=== PATIENT | female | born 1960 | race Two or more races ===

== ENCOUNTER 2021-03-06 21:35 | Emergency (ER) | payer OTHER ==
[~2021-03-06] VITALS: Ht 160 cm; Wt 96.6 kg
[2021-03-06] MEDS ORDERED: VALSARTAN160 MG (22:11)
[2021-03-06] MEDS ORDERED: TENORMIN50 M1 (22:11)
[2021-03-06] MEDS ORDERED: AMBIEN5 MG (22:12)
[2021-03-07] MEDS ORDERED: MEDROLPACK PO (13:56)
[2021-03-07] MEDS ORDERED: ZITHROMAX500 MG PO (13:56)
[2021-03-07] MEDS ORDERED: IVERMECTIN3 MG PO (13:56)
[2021-03-07] MEDS ORDERED: PROAIR RESPICL90 MCG IH (13:56)
[2021-03-07] MEDS ORDERED: TUSNEL LIQUID178 ML PO (13:56)
== END 2021-03-07 14:18 | disposition home or self-care (01) ==
LOC: ER 21:35
DX: U07.1 COVID-19 (principal); J06.9 Acute upper respiratory infection, unspecified; R50.9 Fever, unspecified; K57.30 Diverticulosis of large intestine without perforation or abscess without bleeding; J12.82 Pneumonia due to coronavirus disease 2019; I10 Essential (primary) hypertension

== ENCOUNTER 2021-03-09 13:00 | Outpatient (CLI) | payer OTHER ==
[~2021-03-09 13:00] MED LIST: AMBIEN5 MG; IVERMECTIN3 MG PO; MEDROLPACK PO; PROAIR RESPICL90 MCG IH; TENORMIN50 M1; TUSNEL LIQUID178 ML PO; VALSARTAN160 MG; ZITHROMAX500 MG PO
== END 2021-03-09 14:45 | disposition home or self-care (01) ==
LOC: ASH CLINIC 13:00
PROVIDERS: ATTEND General Practice
DX: Z23 Encounter for immunization (principal); U07.1 COVID-19

== ENCOUNTER 2021-03-12 23:14 | Inpatient (IN) | payer OTHER ==
[~2021-03-12] VITALS: Ht 160 cm; Wt 90.7 kg
[2021-03-12] MEDS ORDERED: ATENOLOL25 GM (23:46)
[2021-03-12] MEDS ORDERED: NORVASC5 MG (23:46)
== END 2021-03-20 14:40 | disposition home or self-care (01) | DRG 177 ==
LOC: ER 23:14 → MEDJ 03-13 09:40
PROVIDERS: ADMIT Internal Medicine; ATTEND Internal Medicine
PROC: BW25ZZZ Computerized Tomography (CT Scan) of Chest, Abdomen and Pelvis (ICD-10-PCS; principal; 2021-03-13)
PROC: 3E0F7GC Introduction of Other Therapeutic Substance into Respiratory Tract, Via Natural or Artificial Opening (ICD-10-PCS; 2021-03-13)
PROC: 3E0F7SF Introduction of Other Gas into Respiratory Tract, Via Natural or Artificial Opening (ICD-10-PCS; 2021-03-13)
PROC: 4A12X4Z Monitoring of Cardiac Electrical Activity, External Approach (ICD-10-PCS; 2021-03-13)
PROC: 8E0ZXY6 Isolation (ICD-10-PCS; 2021-03-13)
PROC: 4A033R1 Measurement of Arterial Saturation, Peripheral, Percutaneous Approach (ICD-10-PCS; 2021-03-14)
PROC: XW033E5 Introduction of Remdesivir Anti-infective into Peripheral Vein, Percutaneous Approach, New Technology Group 5 (ICD-10-PCS; 2021-03-14)
DX: U07.1 COVID-19 (principal); J12.82 Pneumonia due to coronavirus disease 2019; R09.02 Hypoxemia; E66.8 Other obesity; Z20.822 Contact with and (suspected) exposure to COVID-19; I10 Essential (primary) hypertension; M79.7 Fibromyalgia